=== PATIENT | male | born 1980 | race Hispanic/Latino ===

== ENCOUNTER 2017-05-25 22:25 | Emergency (ER) | payer OTHER ==
[2017-05-25 22:33] VITALS: BP 121/74; PULSE 64; RESP 18; TEMP 98.1; O2SAT 100
[2017-05-25] MEDS ORDERED: Oxycodone/Acetaminophen 5/325 mg Tab PO STA (22:45)
[2017-05-25] MEDS ORDERED: Oxycodone/Acetaminophen 5/325 mg Tab ONE ×2 (23:01→23:04)
--- NOTE | 2017-05-25 23:06 | ED PDOC ---
Lower Extremity Pain/Injury Time Seen by Provider: 05/25/17 22:35 Chief Complaint (Nursing): Lower Extremity Problem/Injury History Per: Patient Additional Complaint(s): Pt. states earlier today he was lying down on a couch and he turned over to his R side while lying on his L and he immediately felt his L knee "pop" 2-3 times. Reports 4-5 years ago he injured the same knee and saw an orthopedist but did not get any imaging done. Pt. was told that it was likely due to a "stiff IT band." Denies blunt trauma, numbness, tingling, other injury. Past Medical History Reviewed: Historical Data, Nursing Documentation, Vital Signs Vital Signs: Last Vital Signs Temp 98.1 F 05/25/17 22:28 Pulse 64 05/25/17 22:28 Resp 18 05/25/17 22:28 BP 121/74 05/25/17 22:28 Pulse Ox 100 05/25/17 22:28 - Family History Family History: States: Unknown Family Hx - Home Medications Home Medications: Ambulatory Orders Medication Instructions Recorded Ketorolac Tromethamine [Toradol] 10 mg PO Q6 #20 tab 06/21/16 oxyCODONE/Acetaminophen [Percocet 1 - 2 ea PO Q6 PRN #16 tab 05/25/17 5/325 mg Tab] - Allergies Allergies/Adverse Reactions: Allergies Allergy/AdvReac Type Severity Reaction Status Date / Time No Known Allergies Allergy Verified 05/25/17 22:28 Review of Systems ROS Statement: Except As Marked, All Systems Reviewed And Found Negative Physical Exam - Physical Exam Appears: Positive for: Well, In Acute Distress (moderate painful distress) Skin: Positive for: Normal Color, Warm. Negative for: Rash Eye Exam: Positive for: Normal appearance Pulses-Dorsalis Pedis (L): 2+ Extremity: Positive for: Other (L knee without swelling, tenderness, or deformity; pt. unable to extend knee due to pain; no break in skin integrity, warmth, or erythema; negative anterior draw sign; no valgus or varus laxity) Neurologic/Psych: Positive for: Alert, Oriented. Negative for: Aphasia, Facial Droop - ECG O2 Sat by Pulse Oximetry: 100 - Radiology X-Ray: Interpreted by Me (L knee x-ray) X-Ray Interpretation: No Acute Disease - Progress ED Course And Treament: L knee x-ray ordered. Toradol 30mg IM, percocet 2 tabs PO ordered. Ice pack applied. Knee alcantara dressing applied. Knee immobilized in immobilizer applied by PA. Crutches provided. Pt. searched on [place] [employer] and last narcotic was prescribed on 05/2016. Pt. urged to take Motrin 600mg prior to taking percocet. Pt. states he will f/u with his orthopedist in [facility]. Disposition - Clinical Impression Clinical Impression: Knee injury - Patient ED Disposition Is Patient to be Admitted: No - Disposition Referrals: Dyan Albert [Outside] Disposition: Routine/Home Disposition Time: 23:45 Condition: STABLE Prescriptions: oxyCODONE/Acetaminophen [Percocet 5/325 mg Tab] 1 - 2 ea PO Q6 PRN #16 tab PRN Reason: pain Instructions: Crutch Instructions (ED), ACL Injury (ED), Knee Immobilizer (ED) Forms: Logical Apps (Bel[place]ian)
--- NOTE | 2017-05-26 14:49 | RAD ---
PROCEDURE: Left Knee Radiographs. HISTORY: Pain. No history of recent/ related trauma provided COMPARISON: None. FINDINGS: BONES: Normal. No fracture. JOINTS: Normal. No osteoarthritis. JOINT EFFUSION: None. OTHER FINDINGS: None. IMPRESSION: No acute findings related to/accounting for the clinical presentation. Concordant results with the preliminary interpretation rendered by the emergency department physician procedure.
== END 2017-05-26 00:01 | disposition home or self-care (01) ==
LOC: H.ER 22:25
DX: S89.92XA Unspecified injury of left lower leg, initial encounter (principal); X50.9XXA Other and unspecified overexertion or strenuous movements or postures, initial encounter; Y92.89 Other specified places as the place of occurrence of the external cause
CPT/HCPCS: 29530; 73562; 96372; 99284; J1885